=== PATIENT | male | born 1995 | race African-American/Black ===

== ENCOUNTER 2018-10-11 17:46 | Emergency (ER) | payer SELFPAY ==
[~2018-10-11] VITALS: Ht 170.2 cm; Wt 66.0 kg
[2018-10-11 17:54] VITALS: BP 144/95
== END 2018-10-11 22:01 | disposition left against medical advice (07) ==
LOC: ER 17:46
DX: Z53.21 Procedure and treatment not carried out due to patient leaving prior to being seen by health care provider (principal)

== ENCOUNTER 2020-01-14 17:13 | Emergency (ER) | payer OTHER ==
[~2020-01-14] VITALS: Ht 170.2 cm; Wt 63.0 kg
[2020-01-14 19:17] VITALS: BP 125/70
== END 2020-01-14 19:19 | disposition home or self-care (01) ==
LOC: ER 17:13
DX: B97.4 Respiratory syncytial virus as the cause of diseases classified elsewhere (principal)
CPT/HCPCS: 87070; 87420; 87430; 99283

== ENCOUNTER 2022-05-19 20:11 | Emergency (ER) | payer SELFPAY ==
[~2022-05-19] VITALS: Ht 170.2 cm; Wt 64.4 kg
[2022-05-20 00:27] LABS: CHLORIDE 102 mEq/L (98-107)
[2022-05-20 00:30] LABS: BASOPHILS % 0.6 % (0.0-2.0); HEMATOCRIT. 42.9 % (42.0-52.0); HEMOGLOBIN. 14.5 g/dL (14.0-18.0); LYMPHOCYTES % 46.7 % (20.0-50.0); MEAN CORPUSCULAR HEMOGLOBIN 29.5 pg (28.0-32.0); MEAN CORPUSCULAR VOLUME 87.3 fL (80.0-94.0); MEAN PLATELET VOLUME 8.4 fl (7.4-10.4); MONOCYTES % 11.9 % (2.0-8.0); NEUTROPHILS % 37.8 % (40.0-76.0); PLATELET 232 x1000/uL (130-400); RED BLOOD CELL COUNT 4.92 mill/uL (4.7-6.1)
[2022-05-20 00:34] LABS: CLARITY URINE CLEAR (CLEAR); COLOR URINE YELLOW (YELLOW); KETONES URINE TRACE (NEGATIVE); LEUKOCYTE ESTERASE URINE NEGATIVE (NEGATIVE); NITRITE URINE NEGATIVE (NEGATIVE); OCCULT BLOOD URINE NEGATIVE (NEGATIVE); PH URINE 5.5 (4.5-8.0); PROTEIN URINE NEGATIVE (NEGATIVE)
[2022-05-20 00:37] LABS: ETHANOL BLOOD < 10 mg/dL
[2022-05-20 00:51] LABS: *AMPHETAMINES SCREEN URINE NEGATIVE (NEGATIVE); *BARBITURATES SCREEN URINE NEGATIVE (NEGATIVE); *BENZODIAZEPINES SCREEN URINE NEGATIVE (NEGATIVE); *COCAINE SCREEN URINE NEGATIVE (NEGATIVE); CANNABINOID URINE SCREEN PRESUMTIVE POSITIVE (NEGATIVE); METHADONE URINE SCREEN NEGATIVE (NEGATIVE); OPIATES URINE SCREEN NEGATIVE (NEGATIVE); PHENCYCLIDINE URINE SCREEN NEGATIVE (NEGATIVE)
[2022-05-20 10:30] VITALS: BP 116/67
== END 2022-05-20 10:32 | disposition home or self-care (01) ==
LOC: ER 20:11
DX: R45.851 Suicidal ideations (principal); B20 Human immunodeficiency virus [HIV] disease; F12.10 Cannabis abuse, uncomplicated; Z20.822 Contact with and (suspected) exposure to COVID-19
CPT/HCPCS: 36415; 80053; 80305; 80307; 80320; 80329; 81003; 85025; 99285; C9803; U0003; U0005; G0480